=== PATIENT | male | born 1965 | race Caucasian/White ===

== ENCOUNTER → 2016-06-17 | Day surgery (SDC) | payer MEDICARE ==
[~2016-06-17] MED LIST: BUPIVACAINE HCL PF 0.75% 30 ML VIAL ONE; EXCEDRIN PO; GABA300C5 PO; IBUP-232 PO; LACTATED RINGER'S 1000 ML INJ 1,000 ML ONE; LIDOCAINE 1.5%/EPINEPHrine 1:200,000 PF SOLN 30 ML AMP ONE; MENSCAP; MIDAZOLAM HCL 5 MG/ML VIAL (1 ML) ONE; ONDANSETRON HCL 4 MG/2 ML VIAL IV PUSH ONE; PERC5TAB12 PO; PROPOFOL 200 MG/20 ML AMP IV ONE; VITA25TA PO; ceFAZolin 2 GM PREMIX 50 ML ONE
--- NOTE | 2016-06-20 06:09 | MP ---
cc: AMAURY POE M.D. DATE OF SURGERY: 06/17/2016 PREOPERATIVE DIAGNOSIS Left shoulder osteoarthritis acromioclavicular joint, left shoulder labral tear, left shoulder impingement syndrome. POSTOPERATIVE DIAGNOSES Left shoulder osteoarthritis acromioclavicular joint, left shoulder labral tear, left shoulder impingement syndrome. PROCEDURE 1. Left shoulder arthroscopic extensive debridement of labral tear. 2. Left shoulder arthroscopic distal clavicle excision. 3. Left shoulder arthroscopic subacromial decompression. SURGEON Dr. Amaury Poe OPHTHALMOLOGIST AYALA Chow ANESTHESIA General with an interscalene block. ESTIMATED BLOOD LOSS Less than 50 cc. COMPLICATIONS None. JUSTIFICATION This patient is a 50-year-old male with a history of severe pain in regards to his left shoulder with failure of conservative treatments. He was evaluated by the undersigned in the [facility]. Clinical exam as well as MRI confirmed the above-named findings. The patient was counseled as to the risks, benefits and alternatives to the above-named proposed surgical procedure. He did wish to proceed with surgery. PROCEDURE IN DETAIL Written consent was obtained. The patient was identified by name, taken to the operating room and placed supine on the operating table. General anesthesia was administered as well as two grams of IV Ancef. The patient was carefully turned to a right lateral decubitus position. A lateral arm roll was placed. All bony prominences and pressure points were well-padded. The patient's neck was carefully monitored and kept neutral. An arthroscopic arm block was gently applied on the left upper extremity with 10 pounds of traction placed. The left shoulder was prepped and draped using isopropyl alcohol, Hibiclens solution and ChloraPrep solution. Standard posterior and anterior glenohumeral arthroscopic portals were established. The glenohumeral joint revealed significant labral tearing along the anterior, superior and posterior portions of the labrum. The biceps origin was intact. An arthroscopic shaver was introduced from the anterior portal and extensive debridement of the labrum was performed. This debridement began at the 3 o'clock position and went up to the 12 o'clock position then all the way back down to the 9 o'clock position. 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 The undersurface of the rotator cuff showed partial tearing which was debrided. Attention was turned to the subacromial space where there was evidence of severe impingement bursitis. An arthroscopic shaver was introduced from a lateral portal. A subacromial decompression was performed. The shaver was used to perform a bursectomy, an arthroscopic bur used to perform acromioplasty and the cautery device used to release the coracoacromial ligament. There was evidence of severe arthritis of the acromioclavicular joint. An arthroscopic bur was introduced from the lateral portal to resect approximately 1 cm of distal clavicle. The bur was used from both the lateral and anterior portal. The superior aspect of the rotator cuff actually had bone growing into the cuff which was impinging and calcified. This was removed and debrided. There was no evidence of high-grade or full-thickness tearing of the rotator cuff tendon. At the conclusion of the surgical procedure the arthroscopic portals were closed with 3-0 Prolene suture. Sterile dressing was applied. The patient was placed in a sling and swathe immobilizer. He tolerated the procedure well with no intraoperative complications noted. MD MOISES Harris/MARISSA /3:07 PM /5:59 AM
== END | disposition home or self-care (01) ==
LOC: ESDC 11:46
PROVIDERS: ATTEND Orthopaedic Surgery Sports Medicine
DX: M19.012 Primary osteoarthritis, left shoulder (principal); M75.42 Impingement syndrome of left shoulder; S43.432A Superior glenoid labrum lesion of left shoulder, initial encounter
CPT/HCPCS: 01630; 01991; 29823; 29824; 29826; 64417; J0690; J2250; J2405; J7120